=== PATIENT | female | born 1985 | race Caucasian/White ===

== ENCOUNTER 2017-06-10 12:20 | Outpatient (CLI) | payer OTHER ==
[~2017-06-10] VITALS: Ht 170.2 cm; Wt 100.5 kg
[~2017-06-10 12:20] MED LIST: MOTRIN 800800 MG/TAB PO; PERCOCET 325 MG1 TA2 PO; PRENATAL VITAMI1 TA5 PO; PRENATAL1 TA1 PO; PROVENTIL0.09 MG/A1 IH; SYNTHROID0.175 MG PO
[2017-06-10 12:31] VITALS: BP 106/74; PULSE 84; TEMP 97.9
== END 2017-06-10 13:10 | disposition home or self-care (01) ==
LOC: LDRO 12:20
DX: O62.9 Abnormality of forces of labor, unspecified (principal); Z3A.38 38 weeks gestation of pregnancy

== ENCOUNTER 2017-06-16 09:37 | Inpatient (IN) | payer OTHER ==
[~2017-06-16] VITALS: Ht 170.2 cm; Wt 102.3 kg
[2017-06-16] VITALS (29 sets, daily range): BP systolic 107–128; BP diastolic 53–82; PULSE 80–108; TEMP 97.6–98.1
[2017-06-16 10:16] LABS: BASO % 0.2 % (0.0-2.0); EOS # 0.1 (0.0-0.7); GRAN # 9.6 (1.4-6.5); GRAN % 79.6 % (42.2-75.2); HEMATOCRIT 37.9 % (37.0-47.0); LYMPH # 1.7 (1.2-3.4); MEAN CELL VOLUME 88 fl (80.0-100.0); MEAN CORPUSCULAR HEMOGLOBIN 30 pg (27.0-31.0); MEAN CORPUSCULAR HGB CONC 34 g/dl (33.0-37.0); MEAN PLATELET VOLUME 11.1 fl (7.4-10.4); MONO # 0.6 (0.1-0.6); MONO % 4.7 % (1.7-9.3); PLATELET COUNT 147 K/mm3 (130-400); RED BLOOD COUNT 4.29 M/mm3 (4.10-5.30); REDCELL DISTRIBUTION WIDTH-CV 13.2 % (11.5-14.5)
[2017-06-17 04:00] VITALS: BP 113/66; PULSE 87; TEMP 97.6
[2017-06-17] MEDS ORDERED: PERCOCET 325 MG1 TA2 PO (08:50)
[2017-06-17] MEDS ORDERED: IBU800 M1 PO (08:50)
[2017-06-17 09:00] VITALS: BP 114/71; PULSE 103; TEMP 98.2
[2017-06-17 16:30] VITALS: BP 115/75; PULSE 92; TEMP 97.7
[2017-06-17 20:15] VITALS: BP 119/72; PULSE 88; TEMP 97.8
[2017-06-18 09:00] VITALS: BP 112/67; PULSE 90; TEMP 97.9
== END 2017-06-18 10:30 | disposition home or self-care (01) | DRG 775 ==
LOC: LDR 09:37 → OB 18:22 → LDR 06-17 07:22 → OB 06-18 10:30
PROVIDERS: Obstetrics & Gynecology
PROC: 10E0XZZ Delivery of Products of Conception, External Approach (ICD-10-PCS; principal; 2017-06-16)
PROC: 0HQ9XZZ Repair Perineum Skin, External Approach (ICD-10-PCS; 2017-06-16)
DX: O99.824 Streptococcus B carrier state complicating childbirth (principal); O70.0 First degree perineal laceration during delivery; O99.284 Endocrine, nutritional and metabolic diseases complicating childbirth; E03.9 Hypothyroidism, unspecified; Z3A.38 38 weeks gestation of pregnancy; Z37.0 Single live birth
CPT/HCPCS: J2540; J2590; J7060; J7120

== ENCOUNTER → 2020-02-28 | Outpatient (CLI) | payer OTHER ==
[~2020-02-28] MED LIST changes: +IBU800 M1 PO
== END ==
LOC: MC.RAD 09:45
DX: Z12.31 Encounter for screening mammogram for malignant neoplasm of breast (principal); N64.89 Other specified disorders of breast; Z80.3 Family history of malignant neoplasm of breast

== ENCOUNTER → 2020-03-15 | Outpatient (CLI) | payer OTHER | LOC: MC.RAD 07:41 | DX: N64.89 Other specified disorders of breast (principal) ==

== ENCOUNTER → 2021-10-15 | Outpatient (CLI) | payer OTHER | LOC: MC.RAD 09:30 | DX: Z12.31 Encounter for screening mammogram for malignant neoplasm of breast (principal) ==

== ENCOUNTER 2023-09-28 09:07 | Inpatient (IN) | payer OTHER ==
[2023-09-28] VITALS (26 sets, daily range): BP systolic 104–132; BP diastolic 56–80; PULSE 67–110; TEMP 97.8–98.1
[~2023-09-28] VITALS: Ht 170.2 cm; Wt 102.7 kg
[~2023-09-28 09:07] MED LIST changes: +LR & Oxytocin 500 ML IV SCH; +LR 1,000 ML IV SCH
--- NOTE | 2023-09-28 10:25 | NUR ---
Patient arrived at 0915 for induction of labor. Patient changed into gown. EFM explained and placed. VS and assessments done. Patient denies leaking of fluid and vaginal bleeding. Reports occasional contractions and good FM. IV started in Rt. Hand. Labs drawn. LR started per protocol. SVE /-3. Consents discussed and signed Patient oriented to induction process. Denies questions at this time.
[2023-09-28 10:48] LABS: BASO % 0.2 % (0.0-2.0); EOS # 0.2 K/mm3 (0.0-0.7); EOS % 1.9 % (0.0-4.0); GRAN # 6.9 K/mm3 (1.4-6.5); GRAN % 74.1 % (42.2-75.2); HEMATOCRIT 37.6 % (37.0-47.0); HEMOGLOBIN 13.1 g/dl (12.5-16.0); LYMPH # 1.7 K/mm3 (1.2-3.4); MEAN CELL VOLUME 90 fl (80.0-100.0); MEAN CORPUSCULAR HEMOGLOBIN 31 pg (27-31); MEAN CORPUSCULAR HGB CONC 35 g/dl (33.0-37.0); MEAN PLATELET VOLUME 11.7 fl (7.4-10.4); MONO # 0.5 K/mm3 (0.1-0.6); MONO % 5.3 % (1.7-9.3); PLATELET COUNT 144 K/mm3 (130-400); REDCELL DISTRIBUTION WIDTH-CV 13.3 % (11.5-14.5)
--- NOTE | 2023-09-28 11:30 | NUR ---
1115 - patient standing at bedside. Wireless monitor placed for patient ambulation. 1120 - Dr. Selby to bedside. Patient back in bed. SVE per provider /-2. AROM at this time, clear fluid noted. 1126 - Patient back to standing at bedside. Wireless monitor adjusted. Patient begins ambulation around unit.
--- NOTE | 2023-09-28 11:40 | NUR ---
Patient ambulating. Difficulty tracing contractions at this time.
--- NOTE | 2023-09-28 12:26 | NUR ---
Patient on the birthing ball at bedside. Difficulty tracing FHR at this time.
--- NOTE | 2023-09-28 12:58 | NUR ---
Patient ambulating with wireless FHM. Difficultly tracing at this time.
[2023-09-28] MEDS ORDERED: Loratadine 10 MG TAB PO PRN (16:00)
[2023-09-28] MEDS ORDERED: Magnes Hydrox (MOM) 80 MG/ML 30 ML CUP PO PRN (16:00)
[2023-09-28] MEDS ORDERED: Naloxone 0.4 MG/ML VIAL IV PRN (16:15)
[2023-09-28] MEDS ORDERED: Phenylephrine/Mineral Oil/Petrolatum 57 GM TUBE RC PRN (16:15)
[2023-09-28] MEDS ORDERED: Acetaminophen 500 MG TAB PO SCH (16:15)
[2023-09-28] MEDS ORDERED: Mag/Al Hydrox/Simeth Susp 30 ML CUP PO PRN (16:15)
[2023-09-28] MEDS ORDERED: Ibuprofen 800 MG TAB PO SCH (16:15)
[2023-09-28] MEDS ORDERED: oxyCODONE 5 MG TAB PO PRN (16:15)
[2023-09-28] MEDS ORDERED: Measles/Mumps/Rubella Virus Vaccine Live w Diluent 0.5 ML VIAL SQ SCH (16:15)
[2023-09-28] MEDS ORDERED: Witch Hazel 50% Pads Bulk TUB TP PRN (16:15)
--- NOTE | 2023-09-28 16:30 | NUR ---
Pt up to bathroom at this time. Voided, unmeasured. Pericare provided, new panties, pad, and icepack placed. Pt ambulates to room without difficulty. Pt oriented to room, denies needs at this time.
--- NOTE | 2023-09-28 16:47 | NUR ---
1455 - Patient reporting some pressure with contractions. SVE /-2. Dr. Selby notified. 1517 - Patient reporting increased pressure and discomfort. SVE /-2. Dr. Selby called for delivery. 1523 - Dr. Selby to bedside. Patient repositioned for delivery. Patricia RN and Luz RN called to bedside for delivery. 1527 - Patient complete per Dr. Selby. 1529 - Patient starts pushing with contractions. 1534 - Viable female delivered via . Cord clamped by Dr. Selby and cut by father. placed skin to skin with mother. Care of infant transferred to Luz BARROW of nursery. 1546 - Placenta delivered spontaneously. Perineum intact per physician. Pitocin started per protocol. Pericare provided. Clean bedpad and ice pack placed. Patient repositioned for comfort. Denies needs at this time.
[2023-09-28] MEDS ORDERED: Sennosides/Docusate 8.6-50 MG TAB PO SCH (17:00)
[2023-09-28] MEDS ORDERED: traZODone 50 MG TAB PO PRN (21:00)
[2023-09-29 01:38] VITALS: BP 126/84; PULSE 76; TEMP 97.8
[2023-09-29 07:38] VITALS: BP 110/71; PULSE 79; TEMP 97.8
[2023-09-29 17:00] VITALS: BP 121/73; PULSE 79; TEMP 98.1
[2023-09-29 20:40] VITALS: BP 119/70; PULSE 71; TEMP 98.1
[2023-09-30 08:00] VITALS: BP 120/70; PULSE 109
== END 2023-09-30 10:18 | disposition home or self-care (01) | DRG 807 ==
LOC: OB 09:07 → LDR 09:07 → OB 17:44
PROVIDERS: ADMIT Obstetrics & Gynecology
PROC: 10E0XZZ Delivery of Products of Conception, External Approach (ICD-10-PCS; principal; 2023-09-28)
PROC: 3E033VJ Introduction of Other Hormone into Peripheral Vein, Percutaneous Approach (ICD-10-PCS; 2023-09-28)
PROC: 10907ZC Drainage of Amniotic Fluid, Therapeutic from Products of Conception, Via Natural or Artificial Opening (ICD-10-PCS; 2023-09-28)
DX: O99.284 Endocrine, nutritional and metabolic diseases complicating childbirth (principal); Z37.0 Single live birth; Z3A.39 39 weeks gestation of pregnancy; E03.9 Hypothyroidism, unspecified
CPT/HCPCS: J2590; J7120